=== PATIENT | female | born 1985 | race Caucasian/White ===

== ENCOUNTER 2017-02-26 09:52 | Inpatient (IN) ==
[2017-02-26] MEDS ORDERED: Famotidine 20 MG/2 ML VIAL IVP ONE (10:23)
[2017-02-26] MEDS ORDERED: CeFAZolin Pre 2,000 MG/100 ML 2,000 MG/100 ML BAG IVPB ONE (10:23)
[2017-02-26] MEDS ORDERED: Metoclopramide 10 MG/2 ML VIAL IVP ONE (10:23)
[2017-02-26] MEDS ORDERED: Oxytocin 20 units/ LR 1000 mL 20 UNIT/1,000 ML BAG IVC ONE (10:23)
[2017-02-26] MEDS ORDERED: Ringers Solution, Lactated 1,000 ML IVC ONE (10:23)
[2017-02-26] MEDS ORDERED: Ringers Solution, Lactated 1,000 ML IVC SCH ×2 (10:30→16:01)
[2017-02-26] MEDS ORDERED: Oxytocin 20 units/ LR 1000 mL 20 UNIT/1,000 ML BAG IVC SCH (10:30)
[2017-02-26] MEDS ORDERED: Ringers Solution, Lactated 1,000 ML ONE (10:31)
[2017-02-26 10:39] LABS: Basophils % 0.3 %; Eosinophils # 0.1 K/mcL (0.0-0.6); Eosinophils % 0.5 %; Hematocrit 37.5 % (35.3-44.9); Hemoglobin 12.7 g/dL (11.5-15.4); Immature Granulocytes % 0.4 % (0-4); Lymphocytes # 2.2 K/mcL (0.6-4.6); Lymphocytes % 19.1 %; Mean Corpuscular HGB Conc 33.9 g/dL (31.6-35.5); Mean Corpuscular Hemoglobin 29.3 pg (28.0-33.3); Mean Corpuscular Volume 86.4 fL (83.0-100.0); Mean Platelet Volume 12.1 fL (9.4-12.4); Monocytes # 0.7 K/mcL (0.0-1.3); Monocytes % 6.3 %; Neutrophils # 8.5 K/mcL (1.6-8.9); Platelet Count 149 K/mcL (140-400); Red Blood Count 4.34 M/mcL (3.82-4.97); Red Cell Distribution Width 13.2 % (11.5-14.5); Segmented Neutrophils % 73.4 %
--- NOTE | 2017-02-26 11:24 | OB/GYN History & Physical ---
Date of Encounter: 02/26/17 Time of Encounter: 11:19 Assessment and Plan (1) 38 weeks gestation of Current visit: Yes Status: Acute (2) Previous delivery affecting Current visit: Yes Status: Acute Admit for scheduled repeat delivery. Pre-op antibiotics as ordered. Regional anesthesia per MANAGER [employer]ENT. NPO since midnight. (3) Cervical cerclage suture present in third trimester Current visit: Yes Status: Acute History of Present Illness Chief complaint: scheduled repeat delivery HPI: Ms. Haile is a 31 year old female presenting at 38w2d for scheduled repeat delivery. She has a history of 2 SABs at 16 and 18 weeks gestation and a 24 week delivery after which the survived only a short time. She then had an abdominal cerclage placed and had a full term delivery via . She denies any problems with this . No complaints today. Good FM. Past Med Surg Social Fam HX - Past Medical History Medical history: no medical history Psychiatric history: no psych history - Past Surgical History Surgical History: - Social History Smoking Status: Never smoker Smokeless Tobacco Status: No Alcohol use: none Drug use: none - Family History Mother Living Status: Still Living Hx Family Cardiac Disorders: No Hx Family Respiratory Disorders: No Hx Family Cancer: No Hx Family GI Disorders: No Hx Family Genitourinary Disorders: No Hx Family Endocrine Disorder: No Hx Family Musculoskeletal Disorders: No Hx Family Neuromuscular Disorders: No Hx Family Neurologic Disorders: No Hx Family HEENT Disorders: No Hx Family Autoimmune Disorders: No Hx Family Reproductive Disorders: No Hx Family Psychosocial Disorders: No Hx Family Medical Disorders: No Obstetrical History - Pregnancies : 5 Para: 2 Term: 1 : 1 Ab's: 2 Livin Medications and Allergies Vit Calc,Iron,Folic [ Vitamins] 1 tab PO DAILY 02/26/17 [ History] Allergies No Known Allergies Allergy (Verified 02/26/17 10:19) Review of System OB All systems PM: reviewed and no additional remarkable complaints except as stated Exam - Constitutional Constitutional: well developed, well nourished, no acute distress - HEENT HEENT: Mucus Membranes Moist - Lungs Respiratory exam: CTAB - Cardiovascular Cardiovascular exam: RRR, +S1, +S2 - Abdomen Abdomen: Present: gravid, non tender - Extremities Extremities exam: normal inspection Results Result Diagrams: 02/26/17 10:00 Abnormal lab results WBC 11.6 K/mcL (4.3-11.1) H 02/26/17 10:00 All other labs normal.
--- NOTE | 2017-02-26 11:27 | Anesthesia Evaluation PreOp ---
Date of Encounter: 02/26/17 Time of Encounter: 11:25 - Past History Planned Operation: repeat c/s, [id number] Cardiac History: Denies any Significant Hx Pulmonary History: Denies Any Significant HX [employer] History: Denies Any Significant HX Other Medical History: Denies Any Significant HX Anesthesia History: No Prior Anesthetic Complications, Past Anesthesia ( cholecyst, c/s) Alcohol Use: none Drug use: none Medications and Allergies Vit Calc,Iron,Folic [ Vitamins] 1 tab PO DAILY 02/26/17 [ History] Allergies No Known Allergies Allergy (Verified 02/26/17 10:19) - Meds/Allergy Pre-op Review Medications Reviewed: Yes Allergies Reviewed: Yes Beta Blockers on Current Med List: No Anesthesia Results - Labs 02/26/17 10:00 Anesthesia Exam O2 Sat Height 1.7 m Weight 115.5 kg fhr 120's-140's Height: 1.7 Weight: 115 NPO (# of Hours): >8 - HEENT Pupil (Motor): Pupils equal, EOMI Mallampati: II Teeth: Normal Oral Opening: Greater than 3 - [employer] LOC: Oriented [employer] Motor: Normal RUE, Normal LUE, Normal RLE, Normal LLE, Normal Face [employer] Sensory: Normal: RUE, LUE, RLE, LLE, Face - Cardiac Rhythm: Regular Murmur: None - Pulmonary Breath Sounds: bilateral Clear Respiratory Effort: Symmetrical Anesthesia Assess/Plan ASA Score: 2 Modified [place] Scale for Level of Consciousness: Cooperative, oriented, and tranquil Anesthetic Plan: Regional Monitoring Plan: Standard Monitors Recovery Plan: PACU
[2017-02-26] MEDS ORDERED: *HR* Morphine Sulfate/PF 5 MG/10 ML AMPUL ONE (11:40)
[2017-02-26] MEDS ORDERED: *HR* FentaNYL (PF) 100 MCG/2 ML VIAL ONE (11:40)
[2017-02-26] MEDS ORDERED: EPHEDrine 50 MG/ML VIAL ONE (11:52)
[2017-02-26] MEDS ORDERED: *HR* Oxytocin 10 UNIT/ML VIAL IM ONE (12:11)
--- NOTE | 2017-02-26 13:50 | OB/GYN Procedure Note ---
Section - Date of procedure: 02/26/17 Preop diagnosis: other (Intrauterine at 38-0/7 weeks, previous section 1, history of abdominal cerclage, history of 3 second trimester miscarriages, desires sterilization) Procedure: repeat low transverse, bilateral tubal ligation Surgeon: Lazaro Gonzales Estimated blood loss (cc): 800 Underwriting Support Manager: Kaitlin Soriano ([email or web address]) Anesthesiologist: Jay Jay Galloway General Medical Practitioner: Cooper Holley Anesthesia Type: Spinal section complications: none Disposition: L&D Recovery Room Specimens: Right tube segment, Left tube segment - (s) A Delivery Date: 02/26/17 Infant Delivery Time: 12:50 Presentation: vertex Position: ELIA Route of delivery: other ( section) Gender: Male Viability: Viable Pounds: 7 Ounces: 12 Gram Weight: 3.515 kg at 1 minute: 8 at 5 minutes: 8 Shoulder Dystocia: not encountered Placenta: spontaneous Cord: 3 umbilical vessels - Narrative Narrative: Patient is a 31-year-old 5 para 1121 at 38-0/7 weeks who presented for repeat low transverse section. Patient has a history of 3 second trimester deliveries one at 16 weeks and 1 at 18 weeks and one at 22 weeks. The patient with her last had found someone that performed a robotic abdominal cerclage which allowed her to carry to term will be performed a primary section. Patient has had no complications with this was seen by maternal medicine who recommended she be delivered at 38 weeks to prevent any potential chance of going into labor and causing issues with the cerclage. She is having no vaginal bleeding spotting or discharge and no contractions. She is wanting a tubal ligation the risks and benefits of the tubal ligation was explained to patient with failure rate of 5-8 per thousand with increased risk of ectopic if was to occur. Procedure: Patient was taken to the operating room where spinal anesthesia was found be adequate. She was placed in the dorsal supine position prepped and draped in usual fashion. Timeout was then obtained. A Pfannenstiel incision was made with a scalpel and carried down through the underlying tissue to the fascia was then applied. Fascia was nicked in midline extended laterally with the Price scissors. The superior and inferior edges of the fascia were grasped tented up and dissected off the rectus muscles. Rectus muscles were in midline parietal peritoneum was identified tented up and entered sharply. This was extended superiorly and inferiorly with Metzenbaum scissors. The bladder blade was inserted the vesicouterine peritoneum was identified tented up and entered sharply. This was extended laterally and the bladder flap was created digitally. The lower uterine segment was then incised with a scalpel and extended laterally with digital manipulation. Membranes were ruptured clear fluid is identified. The 's head was delivered the cord was clamped and cut and infant was handed off to waiting pediatric team. Placenta was then spontaneously delivered uterus was then exteriorized and cleaned of all clots and debris. The lower uterine segment was then closed using an 0 Vicryl in a running locking stitch by a 2 layer closure. Good hemostasis was noted. Attention was then turned to the fallopian tubes. Each tube was then grasped at the ampullary region and a knuckle of the tube was then suture ligated with 0 Vicryl 2 incorporating the fimbriated end and this was then removed. Good hemostasis bilaterally after the procedure. The uterus was returned to the abdomen the gutters were cleaned of all clots and debris and copiously irrigated. No active bleeding was noted rectus muscles were brought together in the midline by an 0 Vicryl by a [id number] stitch. The fascia was then closed using a #1 stratafix in running stitch and the skin was closed using a 4-0 Vicryl in subcuticular manner. A remi dressing was then applied at the end of the case. All needle/sponge counts were correct 3 she did receive preoperative antibiotics.
[2017-02-26] MEDS ORDERED: Ibuprofen 600 MG TABLET PO PRN (16:01)
[2017-02-26] MEDS ORDERED: *HR* OxyCODONE/APAP 5/325 TABLET PO PRN (16:01)
[2017-02-26] MEDS ORDERED: Ondansetron 4 MG/2 ML VIAL IVP PRN (16:01)
[2017-02-26] MEDS ORDERED: *HR* OxyCODONE/APAP 10/325 TABLET PO PRN (16:01)
[2017-02-26] MEDS ORDERED: Metoclopramide 10 MG/2 ML VIAL IVP PRN (16:01)
[2017-02-26] MEDS ORDERED: Simethicone 80 MG TAB.CHEW PO PRN (16:01)
[2017-02-26] MEDS ORDERED: Sennosides 8.6 MG TABLET PO PRN (16:01)
[2017-02-26] MEDS: Oxytocin 20 units/ LR 1000 mL 20 UNIT/1,000 ML BAG IVC SCH ×2 (16:24→23:38)
[2017-02-27 04:43] LABS: Basophils % 0.2 %; Eosinophils # 0.1 K/mcL (0.0-0.6); Eosinophils % 0.8 %; Hematocrit 31.6 % (35.3-44.9); Immature Granulocytes % 0.8 % (0-4); Lymphocytes # 1.5 K/mcL (0.6-4.6); Lymphocytes % 11.8 %; Mean Corpuscular HGB Conc 33.2 g/dL (31.6-35.5); Mean Corpuscular Hemoglobin 28.5 pg (28.0-33.3); Mean Corpuscular Volume 85.6 fL (83.0-100.0); Mean Platelet Volume 12.5 fL (9.4-12.4); Monocytes # 0.7 K/mcL (0.0-1.3); Monocytes % 5.4 %; Neutrophils # 10.3 K/mcL (1.6-8.9); Platelet Count 123 K/mcL (140-400); Red Blood Count 3.69 M/mcL (3.82-4.97); Red Cell Distribution Width 13.2 % (11.5-14.5)
[2017-02-27 04:44] LABS: Hemoglobin 10.5 g/dL (11.5-15.4)
--- NOTE | 2017-02-27 08:11 | OB/GYN Progress Note ---
Date of Encounter: 02/27/17 Time of Encounter: 08:05 - Assessment and Plan (1) Status post repeat low transverse section Current Visit: Yes Status: Acute Continue routine postop/ care discharge home tomorrow (2) Status post tubal ligation Current Visit: Yes Status: Acute continue routine postop care Subjective - Subjective Principal diagnosis: status post repeat c/s with BPS. Postop day 1 Interval history: Patient resting in bed. skin to skin. Patient denies any pain at this time. Shay catheter is out. Patient has been dangled but not up to void yet. Patient reports: appetite normal, pain well controlled, ambulating normally : doing well, bottle feeding Objective - Vital Signs Latest vital signs: Vital Signs Temp Pulse Resp BP Pulse Ox 02/27/17 04:20 98.0 F 70 12 121/74 99 02/27/17 00:01 97.9 F 73 12 113/68 97 02/26/17 22:02 68 16 121/79 98 02/26/17 21:00 16 02/26/17 19:04 97.8 F 81 16 121/74 95 02/26/17 19:02 97.8 F 81 16 121/74 95 02/26/17 18:01 97.8 F 69 16 125/72 98 02/26/17 17:10 97.9 F 79 16 137/92 98 02/26/17 17:00 16 02/26/17 16:30 97.9 F 82 16 126/84 97 02/26/17 16:29 98.0 F 80 16 124/82 98 02/26/17 16:00 98.0 F 80 16 124/82 98 Intake and Output 02/26/17 02/27/17 02/27/17 23:59 07:59 15:59 Intake Total 900 / 900 925 / 925 Output Total 1150 / 1150 Balance -250 / -250 925 / 925 Intake: IV Fluids 900 / 900 925 / 925 Pitocin 20 unit In 1,000 900 / 900 925 / 925 ml @ 125 mls/hr IVC .Q8H MANDEEP Rx#:[id number] Output: Emesis 200 / 200 Catheter 950 / 950 Other: Weight 110.8 kg 111.1 kg Patient Weight 02/27/17 23:59 Weight 111.1 kg - Exam Lungs: bilateral: normal Chest: Normal S1, Normal S2 Extremities: Present: normal Abdomen: Present: normal appearance, soft Incision: Present: normal, dry, intact, dressed (ROSELIA draining) Uterus: Present: normal, firm Fundal Height: 2 (U/2) - Labs Labs: Laboratory Results - last 24 hr 02/26/17 02/27/17 10:00 04:19 WBC 11.6 H 12.7 H RBC 4.34 3.69 L Hgb 12.7 10.5 L D Hct 37.5 31.6 L MCV 86.4 85.6 MCH 29.3 28.5 MCHC 33.9 33.2 RDW 13.2 13.2 Plt Count 149 123 L MPV 12.1 12.5 H Immature Gran % 0.4 0.8 Seg Neutrophils % 73.4 81.0 Lymphocytes % 19.1 11.8 Monocytes % 6.3 5.4 Eosinophils % 0.5 0.8 Basophils % 0.3 0.2 Neutrophils # 8.5 10.3 H Lymphocytes # 2.2 1.5 Monocytes # 0.7 0.7 Eosinophils # 0.1 0.1 Basophils # 0.0 0.0
[2017-02-27] MEDS ORDERED: Prenatal Vit/FA 1 EACH TABLET PO SCH ×2 (09:00)
[2017-02-27 09:57] VITALS: BP 116/79
--- NOTE | 2017-02-27 15:20 | Discharge Summary ---
Date of Encounter: 02/27/17 Time of Encounter: 15:16 - Discharge Diagnosis (1) Status post repeat low transverse section Priority: Primary Status: Acute Comments: Continue routine /postop care discharge home today per patient request Patient to follow up in 2 weeks for incision check with Dr. Gonzales (2) Status post tubal ligation Priority: Secondary Status: Acute Comments: continue routine post op care - Discharge Medications Prescriptions: OxyCODONE/APAP 5/325 [Percocet 5/325 MG] 1 each PO Q4HR PRN #30 tablet PRN Reason: Moderate pain 4-6 Ibuprofen [Motrin] 600 mg PO Q6HR PRN #60 tablet PRN Reason: Cramping Docusate [Colace] 100 mg PO BID #60 capsule Home Medications: Vit Calc,Iron,Folic [ Vitamins] 1 tab PO DAILY 02/26/17 [ History] Docusate [Colace] 100 mg PO BID #60 capsule 02/27/17 [Rx] Ibuprofen [Motrin] 600 mg PO Q6HR PRN #60 tablet 02/27/17 [Rx] OxyCODONE/APAP 5/325 [Percocet 5/325 MG] 1 each PO Q4HR PRN #30 tablet 02/27/17 [Rx] Allergies/Adverse Reactions: Allergies No Known Allergies Allergy (Verified 02/26/17 10:19) Data Procedures and tests throughout hospitalization: Laboratory Tests 02/26/17 02/27/17 10:00 04:19 WBC 11.6 H 12.7 H RBC 4.34 3.69 L Hgb 12.7 10.5 L D Hct 37.5 31.6 L MCV 86.4 85.6 MCH 29.3 28.5 MCHC 33.9 33.2 RDW 13.2 13.2 Plt Count 149 123 L MPV 12.1 12.5 H Immature Gran % 0.4 0.8 Seg Neutrophils % 73.4 81.0 Lymphocytes % 19.1 11.8 Monocytes % 6.3 5.4 Eosinophils % 0.5 0.8 Basophils % 0.3 0.2 Neutrophils # 8.5 10.3 H Lymphocytes # 2.2 1.5 Monocytes # 0.7 0.7 Eosinophils # 0.1 0.1 Basophils # 0.0 0.0 Labs on day of discharge: Labs from last 24 hours 02/27/17 04:19 WBC 12.7 H RBC 3.69 L Hgb 10.5 L D Hct 31.6 L MCV 85.6 MCH 28.5 MCHC 33.2 RDW 13.2 Plt Count 123 L MPV 12.5 H Immature Gran % 0.8 Seg Neutrophils % 81.0 Lymphocytes % 11.8 Monocytes % 5.4 Eosinophils % 0.8 Basophils % 0.2 Neutrophils # 10.3 H Lymphocytes # 1.5 Monocytes # 0.7 Eosinophils # 0.1 Basophils # 0.0 Date of admission: 02/26/17 09:52 Primary care physician: PCP LORRI Discharging clinician: Sneha Shepherd Anticipated date of discharge: 02/27/17 - Patient Status Disposition: Home, Self-Care Condition: Good Functional capacity at discharge: independent ambulation - Discharge Instructions Follow Up With: LORRI,PCP [Primary Care Provider] - Lazaro Gonzales DO [Partnered Physician] - - Diet and Activity Activity: increase activity as tolerated Diet: regular diet Hospital Course Procedures: Oarrs report reviewed by DENISSE Pineda prior to discharge. Reason for admission: section Delivery: section Other procedures: tubal ligation Discharge diagnosis: IUP at term delivered baby: male (bottle feeding) Time Attestation: Total time spent providing and/or coordinating discharge services: Time Spent: Less than 30 minutes - VTE Documentation of Mechanical Device: Intermittent pneumatic compression device Exam - Constitutional Vitals: Temp Pulse Resp BP Pulse Ox 97.9 F 65 12 116/79 99 02/27/17 09:49 02/27/17 09:49 02/27/17 09:49 02/27/17 09:49 02/27/17 04:20
== END 2017-02-27 16:22 | disposition home or self-care (01) | DRG 766 ==
LOC: 1NENULAB 09:52 → 1NENUOBS 15:59
PROVIDERS: ADMIT Obstetrics & Gynecology; ATTEND Obstetrics & Gynecology